=== PATIENT | male | born 1990 | race Hispanic/Latino ===

== ENCOUNTER 2016-09-30 08:27 | Outpatient (CLI) | payer OTHER ==
[2016-09-30 09:04] LABS: Albumin 4.2 g/dL (3.9-5); Albumin/Globulin Ratio 1.5 %; Bilirubin,Direct 0.2 mg/dL (0-0.2); Bilirubin,Indirect 1.1 mg/dL; Bilirubin,Total 1.3 mg/dL (0.1-1.2)
== END 2016-09-30 08:28 | disposition home or self-care (01) ==
LOC: LAB 08:27
PROVIDERS: ATTEND Surgery
DX: K80.20 Calculus of gallbladder without cholecystitis without obstruction (principal); E80.6 Other disorders of bilirubin metabolism
CPT/HCPCS: 36415; 80074

== ENCOUNTER 2016-10-06 10:45 | Day surgery (SDC) | payer OTHER ==
[2016-10-06] MEDS ORDERED: NACL BACTERIOSTATIC INFILTRATI ONE (11:41)
[2016-10-06] MEDS ORDERED: HEPARIN SUB-Q NR (12:00)
[2016-10-06] MEDS ORDERED: ANCEF/STERILE WATER 2 GM/20 ML IV NR (12:00)
--- NOTE | 2016-10-06 12:17 | Anesthesia Consultation ---
Anesthesia Consult and Med Hx Date of service: 10/06/16 - Airway Anesthetic Teeth Evaluation: Good ROM Head & Neck: Adequate Mental/Hyoid Distance: Adequate Mallampati Class: Class I Intubation Access Assessment: Good - Pulmonary Exam CTA: Yes - Cardiac Exam Cardiac Exam: RRR - Pre-Operative Health Status ASA Pre-Surgery Classification: ASA2 Proposed Anesthetic Plan: TIVA - Pre-Anesthesia Comment Pre-Anesthesia Comments: Family History MH, paternal grandmother - Gastrointestinal Hx Gastroesophageal Reflux Disease: Yes (occ)
--- NOTE | 2016-10-06 12:17 | Anesthesia Day of Surgery ---
Anesthesia Day of Surgery - Day of Surgery Patient Examined: Yes Patient H&P Reviewed: Yes Patient is NPO: Yes
[2016-10-06 12:20] LABS: Alanine Aminotransferase 25 units/L (7-56); Albumin 4.5 g/dL (3.9-5); Albumin/Globulin Ratio 1.6 %; Alkaline Phosphatase 82 units/L (35-129); Anion Gap 15 mmol/L; Blood Urea Nitrogen 14 mg/dL (9-20); Calcium 9.1 mg/dL (8.4-10.2); Carbon Dioxide 27 mmol/L (22-30); Chloride 104.6 mmol/L (98-107); Glucose 84 mg/dL (75-100); Potassium 4.4 mmol/L (3.6-5.0); Sodium 142 mmol/L (137-145); Total Protein 7.3 g/dL (6.3-8.2)
[2016-10-06] MEDS ORDERED: SUBLIMAZE ONE (12:40)
[2016-10-06] MEDS ORDERED: DILAUDID ONE (12:40)
[2016-10-06] MEDS ORDERED: XYLOCAINE MPF 2% ONE (12:41)
[2016-10-06] MEDS ORDERED: VERSED ONE (12:41)
[2016-10-06] MEDS ORDERED: ROBINUL ONE ×3 (12:44→15:13)
[2016-10-06] MEDS ORDERED: DIPRIVAN IV ONE (12:49)
[2016-10-06] MEDS ORDERED: DECADRON ONE (12:52)
[2016-10-06] MEDS ORDERED: ZOFRAN ONE (12:53)
[2016-10-06] MEDS ORDERED: BLOXIVERZ ONE ×2 (12:53→15:12)
[2016-10-06] MEDS ORDERED: VERSED IV NR (13:00)
[2016-10-06] MEDS ORDERED: PEPCID PO NR (13:00)
[2016-10-06] MEDS ORDERED: LACTATED RINGERS 1,000 ML IV SCH (13:00)
[2016-10-06] MEDS ORDERED: MARCAINE-EPI 0.5%-1:200,000 INFILTRATI ONE ×3 (13:18→14:09)
[2016-10-06] MEDS ORDERED: NACL 0.9% IR ONE ×2 (14:08→14:09)
[2016-10-06] MEDS ORDERED: OMNIPAQUE 300 MG/50 ML (CATH LAB) IV ONE (14:20)
[2016-10-06] MEDS ORDERED: ZEMURON IV ONE (14:43)
[2016-10-06] MEDS ORDERED: DIPRIVAN 10 MG/ML IV ONE ×3 (14:45)
[2016-10-06] MEDS ORDERED: NACL 0.9% 1000 ML 1,000 ML ONE (14:55)
--- NOTE | 2016-10-06 15:54 | Post Operative Note ---
Pre-op diagnosis: 1) Chronic cholecystitis 2) Hyperbilirubinemia 3) Umbilical hernia Post-op diagnosis: same Findings: There was a questionable filling defect within the proximal CBC seen on IOC. Procedure: Laparoscopic cholecystectomy with IOC; also, umbilical hernia repair Anesthesia: BECKA Surgeon: JAMIE HILLIARD Estimated blood loss: 50-100ml Pathology: list (Gallbladder and stones) Specimen disposition: to lab Condition: stable Disposition: PACU
[2016-10-06] MEDS ORDERED: PERCOCET 5/325 PO ONE (16:35)
[2016-10-06] MEDS ORDERED: PERCOCET 5/325 ONE (16:40)
[2016-10-06 17:12] VITALS: BP 122/80
--- NOTE | 2016-10-07 09:14 | Fluoroscopy Report ---
Operative cholangiogram: Injection of contrast demonstrates a normal contour of the CBD draining into the duodenum. A a couple of adjacent filling defects are noted in the proximal duct. There is partial filling of intrahepatic ducts with no defects. There is a round opacity overlying what appears to be the gallbladder region. Impressions: 1. The filling defects in the duct could represent either stones or air bubbles. 2. Suspect gallstone.
--- NOTE | 2016-10-11 18:00 | Procedure Note ---
Date of procedure: 10/06/16 Pre-op diagnosis: 1) Chronic cholecystitis 2) Hyperbilirubinemia 3) Umbilical hernia Post-op diagnosis: same Procedure: 1) Laparoscopic cholecystectomy with IOC 2) Open umbilical hernia repair Description of procedure: Pt was placed supine on the OR table. GETA was administered. Abdomen was prepped and draped. A small infraumbilical incision was made and the umbilical hernia sac dissected away from the umbilical dermis. The sac was excised at it's fascial margins. A blunt 10 mm Caroline port was inserted into the peritoneal cavity and pneumoperitoneum established. A 10 mm subxiphoid, 5 mm RUQ and 5 mm right lateral surgiports were inserted into the peritoneal cavity under direct vision without incident. Pt was placed in a reverse Trendelenburg position with the right side rotated upward. The fundus of the gallbladder was grasped and was retracted cephalad and laterally. Omental adhesions were carefully lysed. The critical view of safety was established. The cystic duct was milked toward the gallbladder and the gallbladder/cyst duct junction clipped. A small incision was then made in the cystic duct. A cholangiogram was obtained a possibly revealed a filling defect within the proximal extrahepatic ductal system. The cholangiocath was removed and the common duct side of the cystic duct was doubly clipped. The cystic duct was completely divided. The cystic artery was doubly clipped and divided. The gallbladder was dissected off of the liver with electrocautery. The gallbladder was placed in an endobag and the endobag and gallbladder removed via the umbilical fascial defect. The Caroline port was replaced and pneumoperitoneum re-established. Irrigation fluid used during the procedure was aspirated from Brown's pouch and the subhepatic space. The upper abdominal ports were removed and there was no bleeding from the port entry sites under low intra-abdominal pressure. The Caroline port was removed. The umbilical fascial defect was closed with 3 interrupted sutures of 0-Ethibond. The umbilical dermis was tacked down to the fascia with a single suture of 3-0 Vicryl. Skin incisions were closed with running, subcuticular sutures of 4-0 Monocryl. Sterile absorbent dressings were applied. Pt tolerated the procedure well. He was extubated in the OR and was taken to PACU in stable condition. Findings: There was a questionable filling defect within the proximal extrahepatic biliary tree. Anesthesia: GETA Machine Baster: JAMIE HILLIARD Estimated blood loss: 50-100ml Pathology: list (Gallbladder) Specimen disposition: to lab Condition: stable Disposition: PACU
== END 2016-10-06 17:27 | disposition home or self-care (01) ==
LOC: OR 10:45
PROVIDERS: ATTEND Surgery
DX: K80.10 Calculus of gallbladder with chronic cholecystitis without obstruction (principal); K42.9 Umbilical hernia without obstruction or gangrene; E80.6 Other disorders of bilirubin metabolism; E78.5 Hyperlipidemia, unspecified; K21.9 Gastro-esophageal reflux disease without esophagitis; Z84.89 Family history of other specified conditions
CPT/HCPCS: 36415; 47563; 49585; 74300; 80053; 88304; A4217; J0690; J1100; J1170; J1644; J2250; J2405; J2704; J2710; J3010; J7030; J7120; Q9967

== ENCOUNTER 2016-10-16 11:13 | Emergency (ER) | payer OTHER ==
[2016-10-16 12:01] LABS: Basophils % (Auto) 0.7 % (0.0-1.8); Eosinophils % (Auto) 3.8 % (0.0-4.3); Hematocrit 45.2 % (35.5-45.6); Hemoglobin 15.5 gm/dl (11.8-15.2); Mean Corpuscular HGB Conc 34 % (32-34); Mean Corpuscular Hemoglobin 30 pg (28-32); Mean Corpuscular Volume 87 fl (84-94); Platelet Count 204 K/mm3 (140-440); Red Blood Count 5.17 M/mm3 (3.65-5.03); Red Cell Distribution Width 12.6 % (13.2-15.2); White Blood Count 11.6 K/mm3 (4.5-11.0)
[2016-10-16 12:07] LABS: Alanine Aminotransferase 28 units/L (7-56); Albumin 4.5 g/dL (3.9-5); Albumin/Globulin Ratio 1.6 %; Alkaline Phosphatase 90 units/L (35-129); Anion Gap 18 mmol/L; Blood Urea Nitrogen 10 mg/dL (9-20); Calcium 9.4 mg/dL (8.4-10.2); Carbon Dioxide 24 mmol/L (22-30); Chloride 104.9 mmol/L (98-107); Glucose 99 mg/dL (75-100); Lipase 18 units/L (13-60); Potassium 4.4 mmol/L (3.6-5.0); Sodium 142 mmol/L (137-145); Total Protein 7.3 g/dL (6.3-8.2)
[2016-10-16] MEDS ORDERED: NACL 0.9% 1000 ML 1,000 ML IV ONE (12:11)
[2016-10-16] MEDS ORDERED: ZOFRAN IV ONE (12:11)
[2016-10-16] MEDS ORDERED: MORPHINE IV ONE (12:11)
[2016-10-16 12:13] LABS: Bilirubin,Urine NEG (Negative); Blood,Urine NEG (Negative); Ketones,Urine TR mg/dL (Negative); Leukocyte Esterase,Urine NEG (Negative); Mucus,Urine 2+ /HPF; Nitrite,Urine NEG (Negative)
[2016-10-16] MEDS ORDERED: NACL ONE (12:15)
--- NOTE | 2016-10-16 13:00 | Emergency Department Report ---
ED Abdominal Pain HPI - General Chief Complaint: Abdominal Pain Stated Complaint: SEVERE ABD PAIN/ SURGERY 2 WEEKS Time Seen by Provider: 10/16/16 11:51 Source: patient Mode of arrival: Ambulatory Limitations: No Limitations - History of Present Illness Initial Comments: 26-year-old male with past medical history of laparoscopic cholecystectomy on cholelithiasis presents to the hospital complains of right upper quadrant pain since 5 AM. Patient has been doing well postoperatively until this morning. She has been taking Motrin intermittent for pain and hasn't had to take his Percocet since the day after the surgery. Patient describes right upper quadrant pain as sharp, constant, worse with palpation, deep inspiration, and movement. Pain is 3/10 intensity. It increases to 6/10 in these activities. He denies fever, poor appetite, nausea, vomiting, melena, hematochezia. Patient denies shortness of breath but admits to having some difficulty breathing and ambulating prior to arrival. Surgeon: Dr. Jamie Souza. Patient also received umbilical hernia repair Severity scale (0 -10): 5 - Related Data Home Medications Medication Instructions Recorded Confirmed Last Taken No Known Home Medications [No 09/30/16 09/30/16 Unknown Reported Home Medications] Allergies Allergy/AdvReac Type Severity Reaction Status Date / Time No Known Allergies Allergy Verified 10/16/16 11:32 ED Review of Systems ROS: Stated complaint: SEVERE ABD PAIN/ SURGERY 2 WEEKS Other details as noted in HPI Comment: All other systems reviewed and negative Other: Constitutional: No fevers chills Eyes: No eye pain visual changes ENT: No ear pain or throat pain Neck: Denies pain Respiratory: Denies cough wheezing shortness of breath Cardiovascular: Denies chest pain, palpitations, syncope GI: As per HPI : Denies dysuria Musculoskeletal: Denies back pain Skin: Denies rash, lesions, erythema Neurologic: Denies headache, numbness, weakness Psychiatric: Denies suicidal ideation, hallucinations ED Past Medical Hx - Past Medical History Previous Medical History?: No - Surgical History Hx Cholecystectomy: Yes (laproscopic 10/07/16) - Social History Smoking Status: Never Smoker Substance Use Type: None - Medications Home Medications: Home Medications Medication Instructions Recorded Confirmed Last Taken Type No Known Home Medications [No 09/30/16 09/30/16 Unknown History Reported Home Medications] ED Physical Exam - General Limitations: No Limitations - Other Other exam information: General: No limitations, patient is alert in no acute distress Head exam: Atraumatic, normocephalic Eyes exam: Normal appearance, pupils equal reactive to light, extraocular movements intact ENT: Moist mucous membrane, normal oropharynx Neck exam: Normal inspection, full range of motion, no meningismus nontender Respiratory exam: Clear to auscultation bilateral, no wheezes, rales, crackles Cardiovascular: Normal rate and rhythm, normal heart sounds Abdomen: Soft, nondistended, right upper quadrant tenderness to palpation without rebound or guarding Extremity: Full range of motion normal inspection no deformity Back: Normal Inspection, full range of motion, no tenderness Neurologic: Alert, oriented x3, cranial nerves intact, no motor or sensory deficit Psychiatric: normal affect, normal mood Skin: Postoperative skin changes without warmth, erythema, or induration ED Course Vital Signs 10/16/16 10/16/16 10/16/16 11:27 11:51 11:52 Temperature 98.7 F 98.6 F Pulse Rate 75 67 Respiratory 17 14 14 Rate Blood Pressure 123/79 Blood Pressure 129/79 [Left] O2 Sat by Pulse 100 97 97 Oximetry 10/16/16 13:33 Temperature Pulse Rate 59 L Respiratory 14 Rate Blood Pressure Blood Pressure 133/78 [Left] O2 Sat by Pulse 100 Oximetry - Reevaluation(s) Reevaluation #1: 10/16/16 13:03 Patient received morphine, Zofran, and normal saline. CT results pending 10/16/16 15:51 Pain improved after morphine. Patient only wanted a small dose of therefore given morphine 4 mg. Toradol for residual pain prior to discharge - Consultations Consultation #1: 10/16/16 Attempted to contact patient's primary surgeon however, there is no answering service. Number for cell phone results only. No answer different voice mail left. No callback ED Medical Decision Making - Lab Data Result diagrams: 10/16/16 11:35 10/16/16 11:35 Lab Results 10/16/16 10/16/16 10/16/16 Range/Units 11:35 11:35 11:45 WBC 11.6 H (4.5-11.0) K/mm3 RBC 5.17 H (3.65-5.03) M/mm3 Hgb 15.5 H (11.8-15.2) gm/dl Hct 45.2 (35.5-45.6) % MCV 87 (84-94) fl MCH 30 (28-32) pg MCHC 34 (32-34) % RDW 12.6 L (13.2-15.2) % Plt Count 204 (140-440) K/mm3 Lymph % (Auto) 16.9 (13.4-35.0) % [place] % (Auto) 7.2 (0.0-7.3) % Eos % (Auto) 3.8 (0.0-4.3) % Baso % (Auto) 0.7 (0.0-1.8) % Lymph # 1.9 (1.2-5.4) K/mm3 [place] # 0.8 (0.0-0.8) K/mm3 Eos # 0.4 (0.0-0.4) K/mm3 Baso # 0.1 (0.0-0.1) K/mm3 Seg Neutrophils % 71.4 H (40.0-70.0) % Seg Neutrophils # 8.3 H (1.8-7.7) K/mm3 Sodium 142 (137-145) mmol/L Potassium 4.4 (3.6-5.0) mmol/L Chloride 104.9 (98-107) mmol/L Carbon Dioxide 24 (22-30) mmol/L Anion Gap 18 mmol/L BUN 10 (9-20) mg/dL Creatinine 0.8 (0.8-1.5) mg/dL Estimated GFR > 60 ml/min BUN/Creatinine Ratio 12.50 % Glucose 99 (75-100) mg/dL Calcium 9.4 (8.4-10.2) mg/dL Total Bilirubin 1.10 (0.1-1.2) mg/dL AST 16 (5-40) units/L ALT 28 (7-56) units/L Alkaline Phosphatase 90 (35-129) units/L Total Protein 7.3 (6.3-8.2) g/dL Albumin 4.5 (3.9-5) g/dL Albumin/Globulin Ratio 1.6 % Lipase 18 (13-60) units/L Urine Color [place] (Yellow) Urine Turbidity Clear (Clear) Urine pH 5.0 (5.0-7.0) Ur Specific [place] 1.031 H (1.003-1.030) Urine Protein 30 mg/dl (Negative) mg/dL Urine Glucose (UA) Neg (Negative) mg/dL Urine Ketones Tr (Negative) mg/dL Urine Blood Neg (Negative) Urine Nitrite Neg (Negative) Urine Bilirubin Neg (Negative) Urine Urobilinogen 2.0 (<2.0) mg/dL Ur Leukocyte Esterase Neg (Negative) Urine WBC (Auto) 2.0 (0.0-6.0) /HPF Urine RBC (Auto) 6.0 (0.0-6.0) /HPF U Epithel Cells (Auto) < 1.0 (0-13.0) /HPF Urine Mucus 2+ /HPF - Radiology Data Radiology results: report reviewed CT angiogram chest: No acute findings CT abdomen and pelvis IV contrast: No acute findings - Medical Decision Making Patient has postoperative right upper questioned pain. No acute emergency surgical or infectious condition identified. Patient be discharged to follow- up with his surgeon this week as scheduled - Differential Diagnosis postop pain, postop infection, pleurisy, PE, bile duct stone Critical Care Time: No Critical care attestation.: If time is entered above; I have spent that time in minutes in the direct care of this critically ill patient, excluding procedure time. ED Disposition Clinical Impression: Postoperative abdominal pain Disposition: DC-01 TO HOME OR SELFCARE Is pt being admited?: No Does the pt Need Aspirin: No Condition: Stable Instructions: Abdominal Pain (ED) Additional Instructions: Take your Percocet as needed for pain. You may also continue Motrin as needed. You were provided a copy of labs and imaging study results. Take these to your follow up appointment this week. Return if symptoms worsen. Referrals: JAMIE SOUZA MD [Staff Physician] - 3-5 Days (f/u this week as scheduled ) Time of Disposition: 15:53
--- NOTE | 2016-10-16 13:07 | Cat Scan Report ---
CTA CHEST: History: Pleuritic chest pain. Technique: Helical CT following IV contrast. Pulmonary embolus protocol. Sagittal and coronal reformatted images. Rotational MIP images. Findings: Contrast bolus is satisfactory. No pulmonary embolus is identified. The thyroid gland, tracheobronchial tree, esophagus, heart, pericardium, mediastinal vessels, lung bass and bony thorax are unremarkable. Impression: No evidence for pulmonary embolus. Unremarkable CT chest with contrast.
--- NOTE | 2016-10-16 13:09 | Cat Scan Report ---
CT SCAN OF THE ABDOMEN AND PELVIS WITH CONTRAST: HISTORY: Upper abdominal pain. TECHNIQUE: Helical CT in 1.25mm intervals following IV contrast. Sagittal and coronal reconstructions. FINDINGS: History of recent umbilical hernia repair and laparoscopic cholecystectomy is given. The liver is normal in size and is without focal defect. No gallstones or biliary dilatation are noted. Cholecystectomy changes are noted. The spleen and pancreas demonstrate a normal size and attenuation with no evidence of abnormal mass. The kidneys are normal in size and position with no evidence of hydronephrosis or mass. The adrenal glands are normal. There is no intestinal obstruction or ascites. Normal appendix. The abdominal aorta is normal. No abnormalities are identified within the retroperitoneum or mesentery. No recurrent hernia is appreciated. There is no evidence of peritoneal air or fluid. There is no evidence of any abnormal masses or fluid collections within the pelvis. No adenopathy is identified. The bladder is normal. IMPRESSION: Unremarkable CT scan of the abdomen and pelvis with contrast. Surgical changes. No acute abdominal process or abscess is appreciated.
[2016-10-16] MEDS ORDERED: TORADOL IV ONE (15:08)
[2016-10-16 16:24] VITALS: BP 127/74
== END 2016-10-16 16:24 | disposition home or self-care (01) ==
LOC: ED 11:13
DX: R10.11 Right upper quadrant pain (principal); G89.18 Other acute postprocedural pain
CPT/HCPCS: 36415; 71275; 74177; 80053; 81001; 83690; 85025; 96361; 96374; 96375; 99284; J1885; J2270; J2405; J7030; Q9967